=== PATIENT | male | born 2000 | race African-American/Black ===

== ENCOUNTER 2020-04-12 22:27 | Emergency (ER) | payer MEDICAID ==
[~2020-04-12] VITALS: Ht 170.2 cm; Wt 72.7 kg
[2020-04-12 22:36] VITALS: Ht 170.2 cm; Wt 72.7 kg
[2020-04-13 02:06] VITALS: BP 132/80
== END 2020-04-13 00:21 | disposition home or self-care (01) ==
LOC: D.ER 22:27
DX: S01.01XA Laceration without foreign body of scalp, initial encounter (principal); W19.XXXA Unspecified fall, initial encounter; Y93.9 Activity, unspecified; Y92.9 Unspecified place or not applicable; M79.642 Pain in left hand

== ENCOUNTER 2020-05-03 17:12 | Emergency (ER) | payer MEDICAID ==
[~2020-05-03] VITALS: Ht 172.7 cm; Wt 70.0 kg
[2020-05-03 17:38] VITALS: BP 144/93; Ht 172.7 cm; Wt 70.0 kg
== END 2020-05-03 18:11 | disposition home or self-care (01) ==
LOC: D.ER 17:12
DX: Z48.02 Encounter for removal of sutures (principal)